=== PATIENT | female | born 1990 | race Asian ===

== ENCOUNTER 2017-08-24 15:26 | Emergency (ER) | payer OTHER ==
[~2017-08-24] VITALS: Ht 172.7 cm; Wt 67.0 kg
[2017-08-24] MEDS ORDERED: ALBUTEROL SULFATE 2.5 MG/0.5 ML NEB SOLUTION NEB ONE (16:15)
[2017-08-24] MEDS ORDERED: IPRATROPIUM BROMIDE 0.5 MG/2.5 ML NEB SOLUTION NEB ONE (16:15)
[2017-08-24] MEDS ORDERED: ALBUTEROL SULFATE HFA 90 MCG/PUFF 8 GM INHALER IH ONE (16:30)
[2017-08-24 18:12] VITALS: BP 118/79
== END 2017-08-24 18:14 | disposition home or self-care (01) ==
LOC: EMS 15:31
DX: J98.01 Acute bronchospasm (principal)
CPT/HCPCS: 71020; 81025; 93005; 94640; 99284; J7613; J3535